=== PATIENT | female | born 1940 | race Caucasian/White ===

== ENCOUNTER → 2017-06-10 | Outpatient (CLI) | payer OTHER ==
[~2017-06-10] MED LIST: AMR2; ASPEC81 PO; CANA1TAB; CRS20; HYDR25TA5; LSN20; METFORMIN HCL PO; PRN1; TIMOLOL MALEATE PO; vitamin d 3
[2017-06-10 16:10] LABS: HEMATOCRIT 40.7 % (37-47); MEAN CELL VOLUME 85.3 fL (80-100); MEAN CORPUSCULAR HEMOGLOBIN 28.1 pg (25-34); MEAN CORPUSCULAR HGB CONC 32.9 g/dl (32-36); MEAN PLATELET VOLUME 10.2 fL (7.4-10.4); PLATELET COUNT 286 K/uL (130-400); RED BLOOD COUNT 4.77 M/uL (4.2-5.4); WHITE BLOOD COUNT 10.27 K/uL (4.8-10.8)
[2017-06-10 16:20] LABS: PROTHROMBIN TIME (PATIENT) 10.3 SECONDS (9.0-12.0)
[2017-06-10 16:41] LABS: BLOOD UREA NITROGEN 16 mg/dl (7-18); BUN/CREATININE RATIO 19.1 (10-20); CALCIUM 9.9 mg/dl (8.5-10.1); CARBON DIOXIDE 27 mmol/L (21-32); CHLORIDE 109 mmol/L (98-107); CREATININE 0.86 mg/dl (0.60-1.20); GLUCOSE 130 mg/dl (70-99); POTASSIUM 4.2 mmol/L (3.5-5.1); SODIUM 144 mmol/L (136-145)
[2017-06-10 16:46] LABS: BASO % 0.5 %; BASO ABS # 0.05 K/uL (0-0.2); COMPLETE YES; EOS % 1.9 %; IG% 0.2 %; LYMPH % 48.9 %; LYMPH ABS # 5.02 K/uL (1.2-3.4); MONO % 7.7 %; NEUT % 40.8 %
== END | disposition home or self-care (01) ==
LOC: C.LAB1850 15:01
PROVIDERS: ATTEND Physician Assistant
DX: J47.9 Bronchiectasis, uncomplicated (principal)

== ENCOUNTER → 2017-12-03 | Outpatient (CLI) | payer OTHER | END | disposition home or self-care (01) | LOC: C.PAPS 16:29 | PROVIDERS: ATTEND Physician Assistant | DX: Z01.419 Encounter for gynecological examination (general) (routine) without abnormal findings (principal) ==

== ENCOUNTER → 2017-12-30 | Outpatient (CLI) | payer OTHER | END | disposition home or self-care (01) | LOC: C.PATHSPEC 13:21 | PROVIDERS: ATTEND Obstetrics & Gynecology | DX: L29.2 Pruritus vulvae (principal) ==

== ENCOUNTER → 2018-01-13 | Outpatient (CLI) | payer OTHER ==
--- NOTE | 2018-01-13 10:42 | DIAGNOSTIC IMAGING REPORT ---
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 A dose lowering technique was utilized adhering to the principles of ALARA. COMPARISON: Chest CT 09/08/2015. FINDINGS: No pneumothorax. The central airways are patent. There is a 7 mm subpleural nodule within the left lower lobe posteriorly on image 186. Mild biapical pleural-parenchymal scarring. Stable 3 mm nodule within the right upper lobe on image 110. Therefore, this is likely benign. No new focal lung consolidations to suggest pneumonia. No suspicious lytic or blastic osseous lesions. Calcified granuloma within the right hepatic lobe. The adrenal glands and spleen are unremarkable. Minimal pericardial fluid. No pleural effusions. The heart is normal in size. Sebaceous cyst within the midline of the back which measures 1.3 cm. No mediastinal or hilar lymphadenopathy. Normal caliber thoracic aorta. IMPRESSION: 1. A 7 mm subpleural nodule within the left lower lobe. This favors an area of scarring or atelectasis. However, please refer to the chart below for recommended follow-up. 2. No new focal lung consolidations to suggest pneumonia. 3. Minimal pericardial fluid. Please refer to below summary of Fleischner criteria recommendations for follow-up of incidental CT nodules (Shayan Carpenter, Guidelines for management of small pulmonary nodules detected on CT scans: A statement from the Fleischner Society, Radiology 237: [id number].) SOLID NODULES Solitary nodule size: <6 mm * Low risk patients: no follow-up needed * high risk patients: optional CT at 12 months Solitary nodule size: 6-8 mm * Low risk patients: follow-up at 6-12 months, then consider further follow-up at 18-24 months * high risk patients: initial follow-up CT at 6-12 months and then at 18-24 months if no change Solitary nodule size: >8 mm * either low or high risk patients - consider follow-up CT at 3 months, and/or CT-PET, and/or biopsy Multiple nodules size: <6 mm * Low risk patients: no routine follow-up * high risk patients: optional CT at 12 months Multiple nodules size: 6-8 mm * Low risk patients: follow-up at 3-6 months, then consider further follow-up at 18-24 months * high risk patients: follow-up at 3-6 months, then at 18-24 months if no change Multiple nodules size: >8 mm * Low risk patients: follow-up at 3-6 months, then consider further follow-up at 18-24 months * high risk patients: follow-up at 3-6 months, then at 18-24 months if no change Note: newly detected indeterminate nodule in persons 35 years of age or older. * Low risk patients: minimal or absent history of smoking and/or other known risk factors * high risk patients: history of smoking or of other known risk factors (e.g. first degree relative with lung cancer, or exposure to asbestos, radon, uranium) * if a nodule up to 8 mm is partly solid or is ground glass further follow-up is required after 24 months to exclude possible slow growing adenocarcinoma (BRUCE) SUBSOLID NODULES Solitary pure ground-glass nodule * nodule size <6 mm - no CT follow-up required * nodule size >=6 mm - follow-up CT at 6-12 months, then every 2 years until 5 years Solitary part-solid nodule * nodule size <6 mm - no CT follow-up required * nodule size >=6 mm - follow-up CT at 3-6 months. If unchanged, and solid component remains <6 mm, then annual follow-up for 5 years Multiple subsolid nodules * nodule size <6 mm - follow-up CT at 3-6 months, consider further follow-up at 2 and 4 years if stable * nodule size >=6 mm - follow-up CT at 3-6 months, subsequent management based on the most suspicious nodule(s) Electronically signed by: Dennis Berry M.D. 01/13/2018 10:41 AM Dictated Date/Time: 01/13/2018 10:30 AM
== END | disposition home or self-care (01) ==
LOC: C.CTS 10:11
PROVIDERS: ATTEND Physician Assistant
DX: J47.9 Bronchiectasis, uncomplicated (principal); R05 Cough; R93.8 Abnormal findings on diagnostic imaging of other specified body structures